=== PATIENT | male | born 1965 | race Caucasian/White ===

== ENCOUNTER 2016-09-02 13:35 | Emergency (ER) | payer SELFPAY ==
[~2016-09-02] VITALS: Ht 175.3 cm; Wt 91.7 kg
[~2016-09-02 13:35] MED LIST: ADVIL,NUPRIN,M200 MG PO
[2016-09-02] MEDS ORDERED: DOXYCYCLINE HY100 MG PO (14:53)
[2016-09-02 15:29] VITALS: BP 143/73
== END 2016-09-02 15:56 | disposition home or self-care (01) ==
LOC: EME 13:35
DX: L03.115 Cellulitis of right lower limb (principal)
CPT/HCPCS: 99281; 99284; J7050